=== PATIENT | male | born 1965 | race Caucasian/White ===

== ENCOUNTER 2016-05-21 19:25 | Emergency (ER) | payer BC ==
[2016-05-21 19:26] VITALS: BP 133/80
--- NOTE | 2016-05-21 19:57 | ERNOTE ---
Lower Extremity HPI - Narrative Date of Service: 05/21/16 - General Lower Extremities Pain: knee: left Time Seen by Provider: 05/21/16 19:41 Source: patient, RN notes reviewed Exam Limitations: no limitations - Immun/Allergies/Home Medications Immunizations: IMMUNIZATION HX Immunizations Up to Date Yes History of Influenza Vaccine Yes Hx Pneumococcal Vaccination No Allergies/Adverse Reactions: Allergies Allergy/AdvReac Type Severity Reaction Status Date / Time Penicillins Allergy rash Verified 12/28/13 13:49 Home Medications: HOME MEDICATIONS Aspirin [Aspirin Enteric Coated] 81 mg PO DAILY 12/28/13 [Last Taken Unknown] Diltiazem HCl [Cardizem Cd] 180 mg PO DAILY 12/28/13 [Last Taken Unknown] Fexofenadine HCl [Kira Allergy] 180 mg PO DAILY 12/28/13 [Last Taken Unknown] Fluticasone Propionate [Flonase] 1 spray NS DAILY 12/28/13 [Last Taken Unknown] Gabapentin [Neurontin] 900 mg PO QID 12/28/13 [Last Taken 12/27/13] Losartan Potassium [Cozaar] 100 mg PO DAILY 12/28/13 [Last Taken Unknown] Sildenafil Citrate [Viagra] 50 mg PO PRN 12/28/13 [Last Taken Unknown] Triamterene/Hydrochlorothiazid [Maxzide 37.5MG/25 MG] 1 tab PO DAILY 12/28/13 [ Last Taken Unknown] rOPINIRole HCL [Requip] 0.5 mg PO HS 12/28/13 [Last Taken Unknown] - History of Present Illness Narrative: 50 y/o male to ED for a lesion on his left posterior knee that he is concerned about. He reports that he noticed a linear lesion early today and applied antibiotic ointment to it. This evening he noticed that there was discoloration around the lesion and he was having some occasional burning pain. His was very concerned so he came to have this evaluated. He denies any injury. Occurred: this morning Method of Injury: Reports: no apparent injury Review of Systems - Review of Systems Constitutional: Absent: fever, chills, malaise EYE: Present: no symptoms reported ENT: Present: no symptoms reported Respiratory: Present: no symptoms reported Cardiology: Absent: chest pain, edema, claudication Gastrointestinal/Abdominal: Absent: nausea, vomiting Genitourinary: Present: no symptoms reported Musculoskeletal: Absent: joint pain, joint swelling Skin: Present: lesions, change in color. Absent: rash, lumps Neurological: Absent: weakness, numbness, tingling Endocrine: Present: no symptoms reported Hematologic/Lymphatic: Absent: easy bruising, easy bleeding Psych: Present: no symptoms reported - Patient's Past Medical History Patient History - Medical: No pertinent hx, Chronic Pain Patient History - Cardiac/Respiratory: Hypertension Patient History - Cancer: Melanoma Patient History - Surgical Procedures: Cancer Surgery, EGD - Social History Living Situations: home Smoking Status: Current some day smoker Have you smoked in the past 12 months: No Do you dip or chew tobacco: No Patient requests Smoking Cessation Consult: No Alcohol Use: none Drug Use: none Physical Exam - Physical Exam General Appearance: Present: wd/wn, alert, anxious, obese Respiratory: Present: no respiratory distress, normal breath sounds, no accessory muscle use, lungs clear Cardiovascular/Chest: Present: regular rate, rhythm, no murmur Extremity Exam: Present: normal inspection, non-tender, no edema, normal range of motion Neurological Exam: Present: alert, oriented, normal mood/affect, no motor/ sensory deficits Skin Exam: Present: warm/dry, other - linear abrasion with scab and surrounding ecchymosis to left posterior knee, mildly tendern to palpation ED Progress - Vital Signs Patient's Vital Signs:: I have reviewed the patient's vital signs. Vital Signs: Vital Signs 05/21/16 19:35 Temperature 36.1 C L Pulse Rate 87 Respiratory 16 Rate O2 Sat by Pulse 96 Oximetry - Progress/Reassessment Progress:: Unchanged Departure Clinical Impression: Abrasion - Departure Disposition: Home self-care Condition: Good Instructions: Abrasion, [id number] Additional Instructions: Keep wound clean Apply moisturizer if needed to scabbed area Referrals: Wilman Wesley MD [Primary Care Provider] -
== END 2016-05-21 20:20 | disposition home or self-care (01) ==
LOC: ER 19:25
DX: S80.212A Abrasion, left knee, initial encounter (principal); F17.210 Nicotine dependence, cigarettes, uncomplicated

== ENCOUNTER 2020-07-01 06:33 | Inpatient (IN) ==
--- NOTE | 2020-06-11 08:25 | ANES ---
Anesthesia Pre Procedure Eval HOME MEDICATIONS fluticasone propionate 50 mcg/actuation nasal spray,suspension 2 spray JIM DAILY PRN g 12/09/17 [Last Taken Unknown] Mometasone Furoate 1 appl TOPICAL BID #45 cream..g. 09/22/18 [Last Taken Unknown] albuterol sulfate 90 mcg/actuation aerosol inhaler 2 inh IH Q6H PRN #8.5 g 05/04/19 [Last Taken Unknown] epinephrine 0.3 mg/0.3 mL injection, auto-injector 0.3 mg IM ONCE PRN #2 ea 05/04/19 [Last Taken Unknown] mupirocin 2 % topical ointment 1 applic TOPICAL BID #30 g 06/15/19 [Last Taken Unknown] furosemide 40 mg tablet 40 mg PO DAILY #30 tab 01/03/20 [Last Taken Unknown] ropinirole 5 mg tablet 10 mg PO DAILY #180 tab 01/03/20 [Last Taken Unknown] tamsulosin 0.4 mg capsule 0.4 mg PO DAILY #90 cap 01/03/20 [Last Taken Unknown] hydrochlorothiazide 25 mg tablet 25 mg PO DAILY #30 tab 01/18/20 [Last Taken Unknown] acetaminophen 500 mg tablet 1,000 mg PO TID PRN tab 03/14/20 [Last Taken Unknow n] diltiazem HCl 360 mg capsule,extended release 24 hr 360 mg PO DAILY cap 05/23/20 [Last Taken Unknown] losartan 100 mg tablet 100 mg PO DAILY tab 05/23/20 [Last Taken Unknown] modafinil 200 mg tablet 200 mg PO DAILY tab 05/23/20 [Last Taken Unknown] Allergies/Adverse Reactions: Allergies Allergy/AdvReac Type Severity Reaction Status Date / Time Penicillins Allergy Intermediate rash Verified 05/23/20 07:59 sildenafil [From Viagra] AdvReac Intermediate Heart Verified 05/23/20 07:59 palpatations - Planned Procedure Planned Procedure: LTKA 3/2, RTKA 3/4 Medication List Reviewed:: Yes Allergies Verified: Yes Medical History (Last Reviewed 06/11/20 @ 08:20 by Roldan Anne CRNA) Bilateral primary osteoarthritis of knee (Chronic) Unspecified open wound, right ankle, subsequent encounter (Chronic) Benign prostatic hyperplasia (Chronic) Unspecified open wound, right ankle, initial encounter (Chronic) Restless leg syndrome, uncontrolled (Chronic) Spasm of muscle, back (Chronic) Toe pain (Acute) Right great x 5 years Obesity (BMI 30-39.9) (Chronic) Onychomycosis (Acute) Onset Date: 05/2004 left thumb Low back pain (Chronic) worsening. can't afford for more procedures at pain clinic. Abrasion (Acute) Anaphylactic reaction (Acute) Asthma, intermittent Onset Date: 2011 Carpal tunnel syndrome on both sides Chronic venous insufficiency Onset Date: 11/22/14 Gastroenteritis Onset Date: 12/2013 Hyperlipidemia Onset Date: 07/02/16 Hypertension Labyrinthitis Onset Date: 01/2014 GARY (obstructive sleep apnea) FMCH 03/07/2013 AHI 32/hr,lowest O2 sat 84% Pancreatitis Onset Date: 08/2011 Seasonal allergies Vertigo Onset Date: 01/2014 Surgical History (Last Reviewed 06/11/20 @ 08:20 by Roldan Anne CRNA) History of bilateral carpal tunnel release Onset Date: 2009 Left 01/2010, right 2010, Both done at [facility] History of colonoscopy History of tonsillectomy as a child History of vasectomy Onset Date: 1992 Right ankle injury age 15, surgical repair [place] teeth extracted Family History (Last Reviewed 06/11/20 @ 08:20 by Roldan Anne CRNA) Father Diabetes Cancer Colon Cancer Mother Hyperglycemia Sister Diabetes - Family Anesthesia History Family History:: no untoward family reactions to anesthesia, no familial bleeding tendencies, no family history of clotting disorders - Patient concern regarding past awareness with sedation, no family history of premature - Airway/Neck/Teeth Teeth Condition: intact Neck Exam: full range of motion Mallampatti Score: 3 Thyromental (T-M) distance: > 6 cm Mandibulo Hyoid distance: > 3 cm - Respiratory Respiratory History: sleep apnea, CPAP/BiPAP home use Smoking Status: Current every day smoker - 0.5ppd Discussed smoking cessation including day of surgery: Yes Sleep Apnea currently treated: Yes Sleep Apnea by current assessment: Yes - Cardiovascular Tolerate Activity: Fair Heart Sounds: S1 & S2, Regular, Murmur - Gastrointestinal NPO since: instructed 2400 - Anesthesia Assessment and Plan Narrative: Morbidly obese, Asthma, fatty liver, several episodes of unexpected recall under anesthesia (sedation) This was explained that the procedures were under SEDATION and that could be expected as is the case with the total knee. ASA Class: PS, III Anesthesia Type Plan: Block - adductor canal block for post op pain relief, Spinal
[~2020-07-01 06:33] MED LIST: ISOPROPYL ALCOHOL 480 APPL BTL MC ONE; MORPHINE SULFATE 15 MG TABLET.SA PO PRN; ROPIVACAINE/CLONIDIN/KETOROLAC 50 ML SYRINGE IJ ONE; ROPIVACAINE/CLONIDIN/KETOROLAC 50 ML SYRINGE IJ PRN; TRANEXAMIC ACID 1,000 MG in NORMAL SALINE 100 ML IV PRN; ceFAZolin SODIUM 1 GM VIAL IV PRN; ceFAZolin SODIUM 1 GM VIAL ONE
[2020-07-01] MEDS ORDERED: MIDAZOLAM HCL/PF 5 MG/ML VIAL ONE (06:53)
[2020-07-01] MEDS ORDERED: BUPIVACAINE HCL/EPINEPHRINE 50 ML VIAL IJ ONE (06:53)
[2020-07-01] MEDS ORDERED: PROPOFOL VIAL IV ONE (06:53)
[2020-07-01] MEDS: RINGER'S SOLUTION,LACTATED 1,000 ML IV PRN ×3 (07:05→10:29)
[2020-07-01] MEDS ORDERED: MAG HYDROX/ALUMINUM HYD/SIMETH 30 ML UDC PO PRN (10:22)
[2020-07-01] MEDS ORDERED: ONDANSETRON HCL/PF 2 MG/ML VIAL IV PRN (10:22)
[2020-07-01] MEDS ORDERED: ACETAMINOPHEN 500 MG TABLET PO PRN (10:22)
[2020-07-01] MEDS ORDERED: ZOLPIDEM TARTRATE 5 MG TABLET PO PRN (10:22)
[2020-07-01] MEDS ORDERED: DEXTROSE 5%-LACTATED RINGERS 1,000 ML IV PRN (10:22)
[2020-07-01] MEDS ORDERED: diphenhydrAMINE HCL 50 MG/ML VIAL IV PRN (10:22)
--- NOTE | 2020-07-01 10:22 | OR ---
Operative Report - Dictated Report Narrative: Date: 07/01/2020 Preoperative diagnosis: Left knee degenerative joint disease. Postoperative diagnosis: Left knee degenerative joint disease. Procedure: Left total knee arthroplasty. Surgeon: Artie Talley M.D. Loom Overhauler: Braeden Gaytan PA-C (provided and essential set of skilled, educated hands that assisted with transfer, positioning, prepping, draping, manipulation, retraction, placement of jigs, injection, insertion of implants, irrigation, closure wounds, and dressings all of which could not be performed by the available surgical crew) Anesthesia: Spinal with regional block and local periarticular joint injection. Complications: None Specimens: Bone. Estimated blood loss: Minimal. Tourniquet time: 100 minutes at 350 millimeters of mercury. Retained implants: Depuy Attune size 7 left lugged cemented posterior stabilized femoral component. Size 7 fixed-bearing cemented tibial platform. 7 by 5 millimeter posterior stabilized cross-linked tibial insert. 41 millimeter medialized patella button. Indications: Mr. Jacobsen is a 55-year-old gentleman who has had longstanding left knee pain and arthrosis. This patient was followed in my clinic for period of time with significant complaints of left knee pain consistent with arthritic changes. He had failed conservative measures including, but not limited to, activity modification, passage of time, medications, and other conservative measures. Patient wished to proceed with surgical treatment. The risks, benefits, and alternatives were discussed in clinic. The risks of , blood clots, bleeding, infection, nerve/tendon blood vessel/ injury, malposition of components, intraoperative fracture, postoperative limited range of motion, persistent pain, failure of components, and need for additional procedures. Patient wished to proceed consent was obtained after answering all questions. Procedure: After marking the correct extremity on the floor, the patient was taken to the operating room. A timeout was performed. IV antibiotics consisting of Ancef were administered prior to the procedure. A regional followed by spinal anesthetic was induced by anesthesia, per my request, on the operative table with all bony prominences well-padded. Paredes catheter was placed, and a bump was placed under the operative side buttock. SCDs and SOPHIE hose were utilized on the nonoperative leg. A well-padded tourniquet was applied to the operative thigh. The operative leg was then pre-scrubbed with alcohol, prepped, and draped in a standard sterile fashion. After exsanguinating the extremity with an Esmarch bandage, the tourniquet was inflated. After marking out the anterior knee for standard incision centered over the patella, the skin was incised and dissected down to the joint retinaculum. The joint retinaculum was marked out as well as the horizontal axis of the patella, and a standard medial parapatellar arthrotomy was then made. The most proximal aspect of the quadriceps tendon and the patella tendon insertion were protected from release. A partial synovectomy was performed as well as a resection of the infrapatellar fat pad. The distal femoral fat pad proximal to the trochlea was also resected using cautery. The soft tissues were elevated off the medial aspect of the proximal tibia using a Frye elevator ensuring that we did not transect the medial collateral ligament. Upon initial evaluation range of motion was approximately 0 degrees to 130 degrees of flexion. There were signs of advanced arthrosis in the medial and patellofemoral greater than lateral joint spaces. There were large marginal osteophytes which were removed with a rongeur. The knee was hyperflexed and the patella was tucked laterally. Protecting the surrounding soft tissues with Homans, an entry drill was placed down the femoral canal using Whitesides line for guidance into the entry point. The intramedullary femoral alignment richie was utilized in order to cut the distal femur in 5 degrees of valgus resecting 10 millimeters of bone. Next the distal femur was sized to a size 7. A posterior referencing guide was utilized to place the distal femoral cutting block in 3 degrees of external rotation. This was pinned into place. The rotation was confirmed both visually and based on anatomic landmarks. The 4 in 1 cutting jig of the appropriate size was utilized in order to make all bony cuts. The neena wing was used to ensure no notching. Retractors were utilized in order to protect surrounding soft tissues. This cut did not result in any excessive notching. We then cut the box centered over the distal femur. This allowed for resection of the anterior and posterior cruciate ligaments. I then turned my attention to the preparation of the tibia. Using an extra medullary tibial alignment richie, 4 millimeters of bone was resected off the medial articular surface. This was made perpendicular to the mechanical axis of the joint with the alignment richie centered over the ankle mortise. The alignment richie was checked and was noted to be parallel to the mechanical axis, centered over the medial one third of the tibial tubercle, paralleling the anterior surface of the tibia. We then turned our attention to the remaining meniscus and soft tissues. These were removed while protecting the surrounding ligaments and soft tissues. The marginal osteophytes off the anterior, posterior, medial, lateral aspects of the femur and tibia were removed. The tibia was sized out to a size 7. Next the tibia was drilled and punched in an externally rotated position. Next the trial femur and a series of tibial inserts were utilized in order to allow for full extension and maximal flexion. It was found that a 5 millimeter insert gave the best range of motion and stability at multiple flexion points as well as at full extension there was less than 2 mm of gapping both medially and laterally. There is minimal anterior translation with the knee at 90 degrees of flexion and no signs of being able to dislocate the knee. The patella was then prepared. The initial thickness was 24 millimeters. This was reamed down to 14 millimeters parallel to the anterior surface of the patella. It was sized out to a size 41 medialized patella button. This was then drilled and trialed. Without any medial restraint the patella tracked appropriately and did not sublux or dislocate. At this point, it was felt these were the appropriate sized implants, and all trials were removed. The standard periarticular joint injection consisting of ropivacaine, Toradol, and epinephrine were injected into the periarticular joint tissues. The bony surfaces were thoroughly irrigated with a pulsatile-suction saline irrigation device. A bone plug from the prior resected anterior chamfer cut was placed into the drill hole at the distal femur. The bony surfaces were then dried in preparation for placement of the implants. The cement was vacuum mixed per the director [employer]'s instructions. The cement was placed on the dry bony surfaces and posterior aspect of the implants. The implants were impacted into place, removing all extruded cement. At this point anesthesia administered tranexamic acid per protocol intravenously. The knee was placed in extension with axial loading with the trial insert while the cement cured. Once the cement cured, all remaining extruded cement was removed. The knee was placed through a range of motion with the trial insert to ensure appropriate range of motion and stability. Final range of motion was approximately 0 to 130 degrees. The knee was again thoroughly irrigated with pulsatile saline lavage. The final polyethylene insert was then impacted into place ensuring no retained soft tissues. The remaining periarticular joint injection was injected. A medium Hemovac drain was placed exiting superior laterally. The knee was then placed over a triangle and the arthrotomy was closed with interrupted #1 Vicryl after thoroughly irrigating the joint. The deep and subcutaneous tissues were closed with interrupted 0 and 3-0 Vicryl respectively. Skin was closed with a running subcutaneous 3-0 Monocryl and Prineo Dermabond dressing. 4 x 4's, Sof-Rol, and a full leg Sridhar wrap were applied. All sponge, needle, blade, and instrument counts were correct prior to closing the wounds. Postoperative condition: The patient was awoken and transferred to the postanesthesia care unit in stable condition. Plan is to be admitted to the inpatient medical/surgical floor postoperatively for 24 hours of IV antibiotics, physical therapy, occupational therapy, and medical comanagement. Patient will be weightbearing as tolerated with range of motion as tolerated. DVT prophylaxis will be with SCDs, SOPHIE hose, and pharmacological anticoagulation. Anticipated hospital stay is approximately 1-3 days.
[2020-07-01] MEDS ORDERED: ALBUTEROL SULFATE 2.5 MG/0.5 ML VIAL.NEB IH PRN (10:24)
[2020-07-01] MEDS ORDERED: EPINEPHrine 0.3 MG DISP.SYRIN IM PRN (10:24)
--- NOTE | 2020-07-01 10:46 | ANES ---
Anesthesia Procedure Note Procedure Note: ANESTHESIA PROCEDURE NOTE Date of Procedure: 07/01/2020 Time of procedure: 8:05 AM. Performed by: ISIS Allen CRNA, MSN Sports Book Server: Radha Head RN. Preprocedure diagnosis: Post total knee arthroplasty pain. Post procedure diagnosis: Same. Procedure: Left adductor Canal Block. Indications: Post left total knee arthroplasty pain relief. Findings: See below. Details of the procedure: The patient was brought to OR #4 and placed in supine position. The patient's left femoral area to the knee was prepped with chlorhexidine and using ultrasound guidance the left femoral artery and nerve was identified and then followed to the level of the adductor canal. Lidocaine 1% was infiltrated to the skin of the intended injection site. Under ultrasound guidance the saphenous nerve was approached with visualization of a 4 inch shielded block needle. Once saphenous nerve was identified with proximity to the needle tip, the saphenous nerve was surrounded with 30 mL bupivacaine 0.25% with 1-200,000 epinephrine. Please see radiology/ultrasound report for details and retained images of the procedure. EBL: 0 Fluids: N/A. Specimen: N/A. Post procedure condition: The patient tolerated the procedure well. No complications were noted. Thank you for this consultation. Roldan Anne CRNA, ARNP, MSN
--- NOTE | 2020-07-01 10:46 | ANES ---
Post Anesthesia Discharge - Transfer of Care Transfer of Care handoff given to nurse: Yes - Discharge from PACU Discharge from PACU when meets criteria: Yes - Alert and comfortable
--- NOTE | 2020-07-01 11:08 | ANES ---
Post Anesthesia Assessment - Vital Signs Vitals: Last Vital Signs Temp 36.5 C 07/01/20 10:40 Pulse 68 07/01/20 10:55 Resp 20 07/01/20 10:55 BP 106/49 07/01/20 10:55 Pulse Ox 97 07/01/20 10:55 Airway Patency: Normal - Mental Status Level Of Consciousness: Awake, Alert, Appropriate - Pain Level Pain Score: 0 - N/V Assessment Nausea/Vomiting Presence: None Dehydration:: No
[2020-07-01] MEDS: KETOROLAC TROMETHAMINE 15 MG/ML VIAL IV SCH ×3 (11:40→23:47)
[2020-07-01] MEDS: ceFAZolin SODIUM 1 GM in DEXTROSE 5 % IN WATER 100 ML IV SCH ×6 (11:41→23:53)
[2020-07-01] MEDS: HYDROcodone/ACETAMINOPHEN 1 EACH TABLET PO PRN ×3 (11:47→21:04)
[2020-07-01] MEDS ORDERED: SULINDAC 200 MG PO SCH (21:00)
[2020-07-01] MEDS: SENNOSIDES/DOCUSATE SODIUM 1 TAB TABLET PO SCH (21:06)
[2020-07-01] MEDS: rOPINIRole HCL 1 MG TABLET PO SCH (21:06)
[2020-07-02] MEDS: KETOROLAC TROMETHAMINE 15 MG/ML VIAL IV SCH ×4 (05:51→23:29)
[2020-07-02] MEDS: HYDROcodone/ACETAMINOPHEN 1 EACH TABLET PO PRN ×2 (05:59→10:42)
[2020-07-02 06:19] LABS: Hematocrit 41.3 % (42.0-52.0); Hemoglobin 14.2 gm/dL (13.5-18.0); Mean Cell Volume 92.8 fl (78-100); Mean Corpuscular Hemoglobin 31.9 pg (27-31); Mean Corpuscular Hgb Conc 34.4 g/dl (32-36); Mean Platelet Volume 9.8 fl (8-11.3); Platelet Count 151 K/mm3 (150-450); Red Blood Count 4.45 M/mm3 (4.7-6.0); Red Cell Distribution Width 13.6 % (11.5-14.0); White Blood Count 9.2 K/mm3 (4.0-10.5)
[2020-07-02 06:24] LABS: Anion Gap 11.8 mmol/L (6.8-13.8); Calcium * 8.4 mg/dL (7.9-10.9); Carbon Dioxide 30.6 mmol/L (24-32.6); Estimated Creat Clear 68.2; Potassium 3.4 mmol/L (3.4-4.6)
[2020-07-02] MEDS: LOSARTAN POTASSIUM 50 MG TABLET PO SCH (08:14)
[2020-07-02] MEDS: rOPINIRole HCL 1 MG TABLET PO SCH ×2 (08:15→20:16)
[2020-07-02] MEDS: DILTIAZEM HCL 180 MG CAP.SR.24H PO SCH (08:16)
[2020-07-02] MEDS: FUROSEMIDE 40 MG TABLET PO SCH (08:16)
[2020-07-02] MEDS: TAMSULOSIN HCL 0.4 MG CAP.SR.24H PO SCH (08:16)
[2020-07-02] MEDS: HYDROCHLOROTHIAZIDE 25 MG TABLET PO SCH (08:17)
[2020-07-02] MEDS: ENOXAPARIN SODIUM 40 MG/0.4 ML SYRG SC SCH (08:42)
[2020-07-02] MEDS: MORPHINE SULFATE 2 MG/ML DISP.SYRIN IV PRN ×2 (13:00→20:17)
[2020-07-02] MEDS: HYDROcodone/ACETAMINOPHEN 5 ML UDC PO PRN ×3 (14:48→23:40)
[2020-07-02] MEDS: MODAFINIL 200 MG PO SCH (15:03)
[2020-07-02] MEDS: GABAPENTIN 300 MG CAPSULE PO SCH ×2 (15:12→20:17)
--- NOTE | 2020-07-02 17:14 | PN ---
Subjective - Date and Time Seen Date: 07/02/20 Time: 12:25 Subjective Narrative: Subjective: Reports swelling and pain that is not as well-controlled as he would like. Was able to walk in the room with therapy. Pain is not well-controlled. Voiding without any complications. Tolerating by mouth intake. Denies any nausea or vomiting. Denies calf pain. Slept well. Physical exam: Alert and oriented to person, place and time Left lower extremity: Palpable dorsalis pedis pulse. Sensation grossly intact to light touch. Dressings removed due to some bloody drainage but no sign of active bleeding. Able to flex and extend ankle and toes. No excessive drainage. Calf and thigh are soft and nontender. Although his thigh has some swelling it is not excessively tense Assessment: Postop day 1 status post left total knee arthroplasty. Plan: Due to the need for pain control, post-operative limited mobility, protection of the surgical site and joint, monitoring of the wound, and the management of chronic medical conditions, he requires continued inpatient care. Continue with physical and occupational therapy weightbearing as tolerated. Continue with anticoagulation. 24 hours postoperative prophylactic antibiotics. Pain control with goal to rely on oral medications -he again states that morphine, Dilaudid, oxycodone products do not work for him and we did increase his hydrocodone dosing although we do not carry the 10/325 mg tabs. I encouraged him to utilize the IV breakthrough medications as he states that these did not work as they were related to his pancreatitis. Continue bowel regimen. Will need 6 weeks with walker or assistive device to protect joint while ambulating during the recovery process. Discharge planning. Discontinue drain and continue Paredes catheter due to surgical intervention tomorrow. Objective - Vitals Vitals: Last Vital Signs Temp 36.8 C 07/02/20 14:34 Pulse 75 07/02/20 14:34 Resp 20 07/02/20 14:34 BP 104/61 07/02/20 14:34 Pulse Ox 92 L 07/02/20 14:34 - Abnormal Lab Findings Abnormal Lab Findings: Abnormal Lab Results 07/02/20 07/02/20 Range/Units 06:14 06:14 RBC 4.45 L (4.7-6.0) M/mm3 Hct 41.3 L (42.0-52.0) % MCH 31.9 H (27-31) pg Est GFR (Non-Af Amer) 59 L (60-130) mL/min Random Glucose 114 H (70-110) mg/dL Cauti Physician Documentation - Urinary Catheter Management Urethral (Paredes) Urethral Indwelling: Yes Reason for Continuing Indwelling Catheter: Surgical Procedure Date of Insertion: 07/01/20 Time of Insertion: 08:35 Assessment/Plan - Problems/Diagnosis (1) Status post left knee replacement Problem: Acute (2) Anxiety about health Problem: Chronic (3) Benign essential hypertension Problem: Chronic (4) Benign prostatic hyperplasia Problem: Chronic Qualifiers: (5) Hyperlipidemia Problem: Chronic Qualifiers: (6) Narcolepsy Problem: Chronic (7) GARY on CPAP Problem: Chronic (8) RLS (restless legs syndrome) Problem: Chronic
[2020-07-02] MEDS: SENNOSIDES/DOCUSATE SODIUM 1 TAB TABLET PO SCH (20:17)
[2020-07-03] MEDS: GABAPENTIN 300 MG CAPSULE PO SCH ×3 (05:38→20:29)
[2020-07-03] MEDS: KETOROLAC TROMETHAMINE 15 MG/ML VIAL IV SCH ×4 (05:55→23:11)
[2020-07-03] MEDS ORDERED: MORPHINE SULFATE 15 MG TABLET.SA PO PRN (06:00)
[2020-07-03] MEDS ORDERED: TRANEXAMIC ACID 1,000 MG in NORMAL SALINE 100 ML IV PRN (06:00)
[2020-07-03] MEDS ORDERED: ceFAZolin SODIUM 1 GM VIAL IV PRN (06:00)
[2020-07-03] MEDS ORDERED: ROPIVACAINE/CLONIDIN/KETOROLAC 50 ML SYRINGE IJ PRN (06:00)
[2020-07-03] MEDS: RINGER'S SOLUTION,LACTATED 1,000 ML IV PRN ×3 (06:00→09:38)
[2020-07-03] MEDS ORDERED: LIDOCAINE HCL 20 ML VIAL ONE (06:48)
[2020-07-03] MEDS ORDERED: BUPIVACAINE HCL/EPINEPHRINE 50 ML VIAL IJ ONE (06:48)
[2020-07-03] MEDS ORDERED: NORMAL SALINE 20 ML VIAL ONE (06:49)
[2020-07-03] MEDS ORDERED: MIDAZOLAM HCL/PF 5 MG/ML VIAL ONE (06:49)
[2020-07-03] MEDS ORDERED: PROPOFOL VIAL IV ONE (06:49)
[2020-07-03] MEDS ORDERED: BUPIVACAINE HCL/PF 10 ML VIAL ONE (06:49)
[2020-07-03] MEDS ORDERED: ceFAZolin SODIUM 1 GM VIAL ONE (07:01)
[2020-07-03] MEDS ORDERED: ROPIVACAINE/CLONIDIN/KETOROLAC 50 ML SYRINGE IJ ONE (07:01)
[2020-07-03] MEDS ORDERED: ISOPROPYL ALCOHOL 480 APPL BTL MC ONE (07:08)
--- NOTE | 2020-07-03 07:21 | ANES ---
Anesthesia Pre Procedure Eval Vitals/Labs: Last Vital Signs Temp 36.6 C 07/03/20 06:00 Pulse 65 07/03/20 06:00 Resp 16 07/03/20 06:00 BP 145/85 H 07/03/20 06:00 Pulse Ox 95 07/03/20 06:00 HOME MEDICATIONS albuterol sulfate 90 mcg/actuation aerosol inhaler 2 inh IH Q6H PRN #8.5 g 05/04/19 [Last Taken Unknown] epinephrine 0.3 mg/0.3 mL injection, auto-injector 0.3 mg IM ONCE PRN #2 ea 05/04/19 [Last Taken Unknown] furosemide 40 mg tablet 40 mg PO DAILY #30 tab 01/03/20 [Last Taken Unknown] tamsulosin 0.4 mg capsule 0.4 mg PO DAILY #90 cap 01/03/20 [Last Taken Unknown] hydrochlorothiazide 25 mg tablet 25 mg PO DAILY #30 tab 01/18/20 [Last Taken Unknown] acetaminophen 500 mg tablet 1,000 mg PO TID PRN tab 03/14/20 [Last Taken Unknown] diltiazem HCl 360 mg capsule,extended release 24 hr 360 mg PO DAILY cap 05/23/20 [Last Taken Unknown] losartan 100 mg tablet 100 mg PO DAILY tab 05/23/20 [Last Taken Unknown] modafinil 200 mg tablet 200 mg PO DAILY tab 05/23/20 [Last Taken Unknown] Ropinirole HCl 5 mg PO BID 06/11/20 [Last Taken Unknown] Sulindac 200 mg PO BID 06/11/20 [Last Taken Unknown] Allergies/Adverse Reactions: Allergies Allergy/AdvReac Type Severity Reaction Status Date / Time Penicillins Allergy Intermediate rash Verified 07/01/20 07:03 sildenafil [From Viagra] AdvReac Intermediate Heart Verified 07/01/20 07:03 palpatations - Planned Procedure Planned Procedure: LTKA 3/2, RTKA 3/4 Medication List Reviewed:: Yes Allergies Verified: Yes Medical History (Last Reviewed 07/01/20 @ 07:00 by Shweta Marrero RN) Bilateral primary osteoarthritis of knee (Chronic) Unspecified open wound, right ankle, subsequent encounter (Chronic) Benign prostatic hyperplasia (Chronic) Unspecified open wound, right ankle, initial encounter (Chronic) Restless leg syndrome, uncontrolled (Chronic) Spasm of muscle, back (Chronic) Toe pain (Acute) Right great x 5 years Obesity (BMI 30-39.9) (Chronic) Onychomycosis (Acute) Onset Date: 05/2004 left thumb Low back pain (Chronic) worsening. can't afford for more procedures at pain clinic. Abrasion (Acute) Anaphylactic reaction (Acute) "random anaphylactic reactions, unsure from what" Asthma, intermittent Onset Date: 2011 Carpal tunnel syndrome on both sides Chronic venous insufficiency Onset Date: 11/22/14 Gastroenteritis Onset Date: 12/2013 Hyperlipidemia Onset Date: 07/02/16 Hypertension Labyrinthitis Onset Date: 01/2014 GARY (obstructive sleep apnea) FMCH 03/07/2013 AHI 32/hr,lowest O2 sat 84% Pancreatitis Onset Date: 08/2011 Seasonal allergies Vertigo Onset Date: 01/2014 Surgical History (Last Reviewed 07/01/20 @ 07:01 by Shweta Marrero RN) History of bilateral carpal tunnel release Onset Date: 2009 Left 01/2010, right 2010, Both done at [facility] History of colonoscopy History of tonsillectomy as a child History of vasectomy Onset Date: 1992 Right ankle injury age 15, surgical repair [place] teeth extracted Family History (Last Reviewed 07/01/20 @ 07:01 by Shweta Marrero RN) Father Diabetes Cancer Colon Cancer Mother Diabetes Sister Breast cancer - Family Anesthesia History Family History:: no untoward family reactions to anesthesia - Airway/Neck/Teeth Within Normal Limits:: Yes Teeth Condition: intact Neck Exam: limited range of motion Mallampatti Score: 3 Thyromental (T-M) distance: > 6 cm Mandibulo Hyoid distance: > 3 cm - Respiratory Respiratory History: CPAP/BiPAP home use Respiratory Physical: lungs clear Smoking Status: Current every day smoker Discussed smoking cessation including day of surgery: Yes Sleep Apnea currently treated: Yes Sleep Apnea by current assessment: Yes - Cardiovascular Cardiac History: hypertension, hyperlipidemia Tolerate Activity: Fair Heart Sounds: S1 & S2, Regular - Gastrointestinal NPO since: MN - Anesthesia Assessment and Plan ASA Class: PS, III Anesthesia Type Plan: Spinal - adductor canal block Planned difficult intubation/equipment available: No
[2020-07-03] MEDS ORDERED: DEXTROSE 5%-LACTATED RINGERS 1,000 ML IV PRN (10:15)
--- NOTE | 2020-07-03 10:15 | OR ---
Operative Report - Dictated Report Narrative: Date: 07/03/2020 Preoperative diagnosis: Right knee degenerative joint disease. Postoperative diagnosis: Right knee degenerative joint disease. Procedure: Right total knee arthroplasty. Surgeon: Artie Talley M.D. Unloader Operator: Braeden Gaytan PA-C (provided and essential set of skilled, educated hands that assisted with transfer, positioning, prepping, draping, manipulation, retraction, placement of jigs, injection, insertion of implants, irrigation, closure wounds, and dressings all of which could not be performed by the available surgical crew) Anesthesia: Spinal with regional block and local periarticular joint injection. Complications: None Specimens: Bone. Estimated blood loss: Minimal. Tourniquet time: 115 minutes at 325 millimeters of mercury. Retained implants: Depuy Attune size 7 right lugged cemented posterior stabilized femoral component. Size 7 fixed-bearing cemented tibial platform. 7 by 5 millimeter posterior stabilized cross-linked tibial insert. 41 millimeter medialized patella button. Indications: Mr. Jacobsen is a 55-year-old gentleman who has had longstanding right knee pain and arthrosis. This patient was followed in my clinic for period of time with significant complaints of right knee pain consistent with arthritic changes. He had failed conservative measures including, but not limited to, activity modification, passage of time, medications, and other conservative measures. Patient wished to proceed with surgical treatment. The risks, benefits, and alternatives were discussed in clinic. The risks of , blood clots, bleeding, infection, nerve/tendon blood vessel/ injury, malposition of components, intraoperative fracture, postoperative limited range of motion, persistent pain, failure of components, and need for additional procedures. Patient wished to proceed consent was obtained after answering all questions. Procedure: After marking the correct extremity on the floor, the patient was taken to the operating room. A timeout was performed. IV antibiotics consisting of Ancef were administered prior to the procedure. A regional followed by spinal anesthetic was induced by anesthesia, per my request, on the operative table with all bony prominences well-padded. Paredes catheter was already in place, and a bump was placed under the operative side buttock. SCDs and SOPHIE hose were utilized on the nonoperative leg. A well-padded tourniquet was applied to the operative thigh. The operative leg was then pre-scrubbed with alcohol, prepped, and draped in a standard sterile fashion. After exsanguinating the extremity with an Esmarch bandage, the tourniquet was inflated. After marking out the anterior knee for standard incision centered over the patella, the skin was incised and dissected down to the joint retinaculum. The joint retinaculum was marked out as well as the horizontal axis of the patella, and a standard medial parapatellar arthrotomy was then made. The most proximal aspect of the quadriceps tendon and the patella tendon insertion were protected from release. A partial synovectomy was performed as well as a resection of the infrapatellar fat pad. The distal femoral fat pad proximal to the trochlea was also resected using cautery. The soft tissues were elevated off the medial aspect of the proximal tibia using a Frye elevator ensuring that we did not transect the medial collateral ligament. Upon initial evaluation range of motion was approximately 0 degrees to 120 degrees of flexion. There were signs of advanced arthrosis in the medial and patellofemoral greater than lateral joint spaces. There were large marginal osteophytes which were removed with a rongeur. The knee was hyperflexed and the patella was tucked laterally. Protecting the surrounding soft tissues with Homans, an entry drill was placed down the femoral canal using Whitesides line for guidance into the entry point. The intramedullary femoral alignment richie was utilized in order to cut the distal femur in 5 degrees of valgus resecting 10 millimeters of bone. Next the distal femur was sized to a size 7. A posterior referencing guide was utilized to place the distal femoral cutting block in 3 degrees of external rotation. This was pinned into place. The rotation was confirmed both visually and based on anatomic landmarks. The 4 in 1 cutting jig of the appropriate size was utilized in order to make all bony cuts. The neena wing was used to ensure no notching. Retractors were utilized in order to protect surrounding soft tissues. This cut did not result in any excessive notching. We then cut the box centered over the distal femur. This allowed for resection of the anterior and posterior cruciate ligaments. I then turned my attention to the preparation of the tibia. Using an extra medullary tibial alignment richie, 4 millimeters of bone was resected off the medial articular surface. This was made perpendicular to the mechanical axis of the joint with the alignment richie centered over the ankle mortise. The alignment richie was checked and was noted to be parallel to the mechanical axis, centered over the medial one third of the tibial tubercle, paralleling the anterior surface of the tibia. We then turned our attention to the remaining meniscus and soft tissues. These were removed while protecting the surrounding ligaments and soft tissues. The marginal osteophytes off the anterior, posterior, medial, lateral aspects of the femur and tibia were removed. The tibia was sized out to a size 7. Next the tibia was drilled and punched in an externally rotated position. Next the trial femur and a series of tibial inserts were utilized in order to allow for full extension and maximal flexion. It was found that a 5 millimeter insert gave the best range of motion and stability at multiple flexion points as well as at full extension there was less than 2 mm of gapping both medially and laterally. There is minimal anterior translation with the knee at 90 degrees of flexion and no signs of being able to dislocate the knee. The patella was then prepared. The initial thickness was 24 millimeters. This was reamed down to 14 millimeters parallel to the anterior surface of the patella. It was sized out to a size 41 medialized patella button. This was then drilled and trialed. Without any medial restraint the patella tracked appropriately and did not sublux or dislocate. At this point, it was felt these were the appropriate sized implants, and all trials were removed. The standard periarticular joint injection consisting of ropivacaine, Toradol, and epinephrine were injected into the periarticular joint tissues. The bony surfaces were thoroughly irrigated with a pulsatile-suction saline irrigation device. A bone plug from the prior resected anterior chamfer cut was placed into the drill hole at the distal femur. The bony surfaces were then dried in preparation for placement of the implants. The cement was vacuum mixed per the director of programming's instructions. The cement was placed on the dry bony surfaces and posterior aspect of the implants. The implants were impacted into place, removing all extruded cement. At this point anesthesia administered tranexamic acid per protocol intravenously. The knee was placed in extension with axial loading with the trial insert while the cement cured. Once the cement cured, all remaining extruded cement was removed. The knee was placed through a range of motion with the trial insert to ensure appropriate range of motion and stability. Final range of motion was approximately 0 to 120 degrees. The knee was again thoroughly irrigated with pulsatile saline lavage. The final polyethylene insert was then impacted into place ensuring no retained soft tissues. The remaining periarticular joint injection was injected. A medium Hemovac drain was placed exiting superior laterally. The knee was then placed over a triangle and the arthrotomy was closed with interrupted #1 Vicryl after thoroughly irrigating the joint. The deep and subcutaneous tissues were closed with interrupted 0 and 3-0 Vicryl respectively. Skin was closed with a running subcutaneous 3-0 Monocryl and Prineo Dermabond dressing. 4 x 4's, Sof-Rol, and a full leg Sridhar wrap were applied. All sponge, needle, blade, and instrument counts were correct prior to closing the wounds. Postoperative condition: The patient was awoken and transferred to the postanesthesia care unit in stable condition. Plan is to be admitted to the inpatient medical/surgical floor postoperatively for 24 hours of IV antibiotics, physical therapy, occupational therapy, and medical comanagement. Patient will be weightbearing as tolerated with range of motion as tolerated. DVT prophylaxis will be with SCDs, SOPHIE hose, and pharmacological anticoagulation. Anticipated hospital stay is approximately 1-3 days.
--- NOTE | 2020-07-03 10:39 | ANES ---
Post Anesthesia Discharge - Transfer of Care Transfer of Care handoff given to nurse: Yes - Discharge from PACU Discharge from PACU when meets criteria: Yes
--- NOTE | 2020-07-03 10:42 | ANES ---
Anesthesia Procedure Note Procedure Note: ANESTHESIA PROCEDURE NOTE Date of procedure: 07/03/2020. Time of procedure: 804. Performed by: Zak Jade CRNA Key Entry Operator: Radha Head RN . Preprocedure diagnosis: Right knee DJD. Post procedure diagnosis: Same. Procedure: Ultrasound-guided right adductor canal Indications: Postoperative analgesia for right total knee arthroplasty. Findings: Patient is brought to operating room #4, sedated, and given a spinal anesthetic. The patient is then placed in a supine position. Patient's right inner thigh was prepped with ChloraPrep. Ultrasound utilized to identify the saphenous nerve in the right adductor canal. A 20-gauge 4 inch regional block needle was advanced under ultrasound guidance until tip of needle was positioned just proximally to saphenous nerve. A total of 30 mL of 0.25% Marcaine with epinephrine 1-200,000 was injected with adequate spread of local anesthesia note d a around the nerve. Regional block needle was removed intact. EBL: Minimal. Fluids: N/A. Specimen: N/A. Post procedure condition: The patient tolerated the procedure well. No complications were noted. Thank you for this consultation Zak Jade CRNA
--- NOTE | 2020-07-03 11:13 | ANES ---
Post Anesthesia Assessment - Vital Signs Vitals: Last Vital Signs Temp 36.5 C 07/03/20 10:45 Pulse 80 07/03/20 10:45 Resp 12 07/03/20 10:45 BP 129/63 07/03/20 10:45 Pulse Ox 96 07/03/20 10:45 Airway Patency: Normal - Mental Status Level Of Consciousness: Awake - Pain Level Pain Score: 0 - N/V Assessment Nausea/Vomiting Presence: None Dehydration:: No
[2020-07-03] MEDS: rOPINIRole HCL 1 MG TABLET PO SCH ×2 (12:03→20:30)
[2020-07-03] MEDS: HYDROCHLOROTHIAZIDE 25 MG TABLET PO SCH (12:03)
[2020-07-03] MEDS: MODAFINIL 200 MG PO SCH (12:04)
[2020-07-03] MEDS: FUROSEMIDE 40 MG TABLET PO SCH (12:04)
[2020-07-03] MEDS: DILTIAZEM HCL 180 MG CAP.SR.24H PO SCH (12:04)
[2020-07-03] MEDS: LOSARTAN POTASSIUM 50 MG TABLET PO SCH (12:04)
[2020-07-03] MEDS: TAMSULOSIN HCL 0.4 MG CAP.SR.24H PO SCH (12:04)
[2020-07-03] MEDS: HYDROcodone/ACETAMINOPHEN 5 ML UDC PO PRN ×3 (12:10→18:31)
[2020-07-03] MEDS: ceFAZolin SODIUM 1 GM in DEXTROSE 5 % IN WATER 100 ML IV SCH ×4 (12:17→18:32)
[2020-07-03] MEDS: MORPHINE SULFATE 15 MG TABLET.SA PO SCH (20:28)
[2020-07-03] MEDS: SENNOSIDES/DOCUSATE SODIUM 1 TAB TABLET PO SCH (20:29)
[2020-07-04] MEDS: ceFAZolin SODIUM 1 GM in DEXTROSE 5 % IN WATER 100 ML IV SCH ×2 (00:40)
[2020-07-04] MEDS: HYDROcodone/ACETAMINOPHEN 5 ML UDC PO PRN ×6 (00:42→23:22)
[2020-07-04] MEDS: KETOROLAC TROMETHAMINE 15 MG/ML VIAL IV SCH ×4 (05:11→22:38)
[2020-07-04] MEDS: GABAPENTIN 300 MG CAPSULE PO SCH ×3 (05:11→21:15)
[2020-07-04 06:08] LABS: Hematocrit 38.4 % (42.0-52.0); Hemoglobin 12.6 gm/dL (13.5-18.0); Mean Cell Volume 96.7 fl (78-100); Mean Corpuscular Hemoglobin 31.7 pg (27-31); Mean Corpuscular Hgb Conc 32.8 g/dl (32-36); Mean Platelet Volume 9.9 fl (8-11.3); Platelet Count 163 K/mm3 (150-450); Red Blood Count 3.97 M/mm3 (4.7-6.0); Red Cell Distribution Width 13.5 % (11.5-14.0); White Blood Count 10.9 K/mm3 (4.0-10.5)
[2020-07-04 06:18] LABS: Anion Gap 7.4 mmol/L (6.8-13.8); BUN/Creatinine Ratio 10.9 (9.0-21.6); Calcium * 8.7 mg/dL (7.9-10.9); Carbon Dioxide 35.9 mmol/L (24-32.6); Estimated Creat Clear 54.9; Potassium 3.3 mmol/L (3.4-4.6)
[2020-07-04] MEDS: MORPHINE SULFATE 15 MG TABLET.SA PO SCH ×2 (09:04→21:15)
[2020-07-04] MEDS: LOSARTAN POTASSIUM 50 MG TABLET PO SCH (09:05)
[2020-07-04] MEDS: HYDROCHLOROTHIAZIDE 25 MG TABLET PO SCH (09:05)
[2020-07-04] MEDS: rOPINIRole HCL 1 MG TABLET PO SCH ×2 (09:05→21:16)
[2020-07-04] MEDS: DILTIAZEM HCL 180 MG CAP.SR.24H PO SCH (09:05)
[2020-07-04] MEDS: TAMSULOSIN HCL 0.4 MG CAP.SR.24H PO SCH (09:06)
[2020-07-04] MEDS: MODAFINIL 200 MG PO SCH (09:06)
[2020-07-04] MEDS: FUROSEMIDE 40 MG TABLET PO SCH (09:06)
[2020-07-04] MEDS: ENOXAPARIN SODIUM 40 MG/0.4 ML SYRG SC SCH (09:29)
--- NOTE | 2020-07-04 13:58 | PN ---
Subjective - Date and Time Seen Date: 07/04/20 Time: 13:52 Subjective Narrative: 55-year-old male postop day 1 status post right total knee arthroplasty, postop day 3 status post left total knee arthroplasty. Patient overall is doing well he has been up and ambulated with physical therapy for approximately 20 feet. He still has significant pain. Tolerating p.o. diet. Using p.o. pain medication. Has had mild drainage noted through his dressings at this time. He notes his pain is worse with weightbearing better with rest. Denies any other acute concerns currently. Objective - Vitals Vitals: Last Vital Signs Temp 38.0 C 07/04/20 11:23 Pulse 77 07/04/20 11:23 Resp 14 07/04/20 11:23 BP 173/76 H 07/04/20 11:23 Pulse Ox 92 L 07/04/20 11:23 - Abnormal Lab Findings Abnormal Lab Findings: Abnormal Lab Results 07/04/20 07/04/20 Range/Units 06:05 06:05 WBC 10.9 H (4.0-10.5) K/mm3 RBC 3.97 L (4.7-6.0) M/mm3 Hgb 12.6 L (13.5-18.0) gm/dL Hct 38.4 L (42.0-52.0) % MCH 31.7 H (27-31) pg Potassium 3.3 L (3.4-4.6) mmol/L Carbon Dioxide 35.9 H (24-32.6) mmol/L Creatinine 1.65 H (0.4-1.4) mg/dL Est GFR (Non-Af Amer) 46 L D (60-130) mL/min Random Glucose 128 H (70-110) mg/dL - Exam Constitutional: Present: Alert, Oriented x3, Cooperative Respiratory: Present: no respiratory distress Extremity: Present: other - Bilateral lower extremities--> bandages have mild drainage blood-tinged greater on the right than left, sensation intact light touch, diffuse mild tenderness about bilateral knees, distal capillary fill brisk Skin Exam: Present: normal color, warm/dry Appearance: Present: appropriate appearance Eye contact: Present: cooperative Thoughts: Present: normal thought pattern Cauti Physician Documentation - Urinary Catheter Management Urethral (Paredes) Urethral Indwelling: Yes Date of Insertion: 07/01/20 Time of Insertion: 08:35 Date of Removal: 07/04/20 Time of Removal: 05:29 Assessment/Plan Plan Narrative: -55-year-old male status post bilateral knee replacements on 07/03 and 07/01. Patient overall is doing well continues to struggle postoperatively with mild pain control as well as meeting his physical therapy goals. He has had mild drainage on his dressings discussed continued monitoring for significant bleeding. Patient will continue to progress with physical therapy. At this time once he meets all PT goals including stairs he can be discharged home with self-care. Was tolerating the pain with p.o. pain medication. He also is returned to p.o. diet without significant complications. Discussed with patient recovery process and continued monitoring. We will continue to adjust treatment plan accordingly. We will continue with plan ambulation every 2-3 hours working towards physical therapy goals. Patient will continue to be monitored in the hospital for other acute complications. - Problems/Diagnosis (1) Status post right knee replacement Problem: Acute (2) Status post left knee replacement Problem: Acute
[2020-07-04] MEDS: MAGNESIUM HYDROXIDE 30 ML UDC PO PRN (15:41)
[2020-07-04] MEDS: SENNOSIDES/DOCUSATE SODIUM 1 TAB TABLET PO SCH (21:15)
[2020-07-05] MEDS: KETOROLAC TROMETHAMINE 15 MG/ML VIAL IV SCH (04:19)
[2020-07-05] MEDS: GABAPENTIN 300 MG CAPSULE PO SCH (05:28)
[2020-07-05] MEDS: HYDROcodone/ACETAMINOPHEN 5 ML UDC PO PRN ×2 (05:55→10:51)
[2020-07-05] MEDS: HYDROCHLOROTHIAZIDE 25 MG TABLET PO SCH (08:04)
[2020-07-05] MEDS: MAGNESIUM HYDROXIDE 30 ML UDC PO PRN (08:04)
[2020-07-05] MEDS: MORPHINE SULFATE 15 MG TABLET.SA PO SCH (08:04)
[2020-07-05] MEDS: DILTIAZEM HCL 180 MG CAP.SR.24H PO SCH (08:05)
[2020-07-05] MEDS: TAMSULOSIN HCL 0.4 MG CAP.SR.24H PO SCH (08:05)
[2020-07-05] MEDS: LOSARTAN POTASSIUM 50 MG TABLET PO SCH (08:05)
[2020-07-05] MEDS: rOPINIRole HCL 1 MG TABLET PO SCH (08:05)
[2020-07-05] MEDS: FUROSEMIDE 40 MG TABLET PO SCH (08:06)
[2020-07-05] MEDS: MODAFINIL 200 MG PO SCH (08:06)
[2020-07-05] MEDS: ENOXAPARIN SODIUM 40 MG/0.4 ML SYRG SC SCH ×2 (08:13→08:28)
--- NOTE | 2020-07-05 11:42 | DS ---
(1) Status post left knee replacement Problem: Acute (2) Anxiety about health Problem: Chronic (3) Benign essential hypertension Problem: Chronic (4) Benign prostatic hyperplasia Problem: Chronic Qualifiers: (5) Hyperlipidemia Problem: Chronic Qualifiers: (6) Narcolepsy Problem: Chronic (7) GARY on CPAP Problem: Chronic (8) RLS (restless legs syndrome) Problem: Chronic (9) Status post right knee replacement Problem: Acute Date of Discharge:: 07/05/20 Hospital Course: Mr. Jacobsen was admitted to the floor after undergoing bilateral staged total knee arthroplasty. Tolerated this well. Was admitted to the floor postoperatively for 24 hours of IV antibiotics, pain control, medical comanagement, and occupational and physical therapy. OT and PT were consulted to assist with activities of daily living and ambulation. Was made weightbearing as tolerated with range of motion as tolerated. Pain was initially controlled with IV regimen. This was transitioned to oral once tolerating a by mouth intake. Was resumed on home diet and medications. A Paredes catheter was inserted in the operating room which was discontinued by postoperative day 1 after the second knee. A drain was placed intraoperatively into the knee which was discontinued on postoperative day 1 after each knee. Lovenox, SCDs, and SOPHIE hose were utilized for DVT prophylaxis. Vital signs remained stable to the hospital course. Labs were obtained which showed a final hemoglobin of 12.6 grams. BMP was reviewed and was stable. Physical examination throughout the hospital course showed an extremity that had sensation that was intact to light touch, palpable pulses, a benign wound, motor intact to the toes, ankle, and knee. Knee range of motion was approximately 5 degrees to 60 degrees bilaterally. Once an oral pain regimen was tolerated and physical therapy goals were met, it was felt that they were stable for discharge to home. Instructions: Continue with weightbearing as tolerated and range of motion as tolerated. It is okay to shower and get the wound wet as long as there is no drainage from the wound. Do not bathe or soak the wound. If there is any drainage from the wound keep the wound clean and dry and cover with dry gauze and tape. Change every 2- 3 days as needed if there is any drainage. Cover wound while showering if there is any drainage. Continue with physical therapy. Resume home diet. Report any fever over 101.5 Fahrenheit, uncontrolled pain, increased drainage, foul odor of drainage, new or increased calf pain or shortness of breath, or any other significant complaints. A 325mg daily aspirin will be started after finishing anticoagulation if not allergic. Continue with SOPHIE hose on the operative extrem ity until instructed otherwise. No driving until instructed otherwise. Follow up in approximately 2-3 weeks. Procedures Performed: see notes below List Procedures: Bilateral total knee arthroplasty Results and Findings: Lab Pending Results 07/02/20 06:14: WBC 9.2, RBC 4.45 L, Hgb 14.2, Hct 41.3 L, MCV 92.8, MCH 31.9 H, MCHC 34.4, RDW 13.6, Plt Count 151, MPV 9.8 07/02/20 06:14: Sodium 142, Plasma Sodium 142, Potassium 3.4, Chloride 103, Carbon Dioxide 30.6, Anion Gap 11.8, BUN 20, Creatinine 1.33, Est GFR (Non-Af Amer) 59 L, BUN/Creatinine Ratio 15.0, Random Glucose 114 H, Calcium 8.4 07/04/20 06:05: WBC 10.9 H, RBC 3.97 L, Hgb 12.6 L, Hct 38.4 L, MCV 96.7, MCH 31.7 H, MCHC 32.8, RDW 13.5, Plt Count 163, MPV 9.9 07/04/20 06:05: Sodium 140, Plasma Sodium 140, Potassium 3.3 L, Chloride 100, Carbon Dioxide 35.9 H, Anion Gap 7.4, BUN 18, Creatinine 1.65 H, Est GFR (Non-Af Amer) 46 L D, BUN/Creatinine Ratio 10.9, Random Glucose 128 H, Calcium 8.7 Disposition: Home self-care Condition: Good Discharge Activity: Activity as tolerated, Weight bearing Discharge Diet: General/regular food Referrals: Wilman Wesley MD [Primary Care Provider] - Additional Patient Instructions (free text): Physical Therapy at [facility] outpatient rehab department on TuesdayJuly 07 at 3:00pm. Follow up [facility] Orthopedic office appointment on TuesdayJuly 23 at 9:00am. Prescriptions (Any new or edited meds): Enoxaparin Sodium [Lovenox] 40 mg SC Q24H #7 disp.syrin Transmission Status: Pending to [facility] Morphine Sulfate [Ms Contin] 15 mg PO Q12H #10 tablet.sa Transmission Status: Sent to [facility] HYDROcodone/ACETAMINOPHEN [[place] 10-325 Tablet] 1 - 2 each PO Q4H PRN #50 tablet PRN Reason: Pain Transmission Status: Sent to [facility] Sennosides/Docusate Sodium [Senokot-S] 2 tab PO HS #60 tab Transmission Status: Pending to [facility] Complete Home Medications List: Complete Home Medication List: albuterol sulfate 90 mcg/actuation aerosol inhaler 2 inh IH Q6H PRN #8.5 g 05/04/19 epinephrine 0.3 mg/0.3 mL injection, auto-injector 0.3 mg IM ONCE PRN #2 ea 05/04/19 furosemide 40 mg tablet 40 mg PO DAILY #30 tab 01/03/20 tamsulosin 0.4 mg capsule 0.4 mg PO DAILY #90 cap 01/03/20 hydrochlorothiazide 25 mg tablet 25 mg PO DAILY #30 tab 01/18/20 diltiazem HCl 360 mg capsule,extended release 24 hr 360 mg PO DAILY cap 05/23/20 losartan 100 mg tablet 100 mg PO DAILY tab 05/23/20 modafinil 200 mg tablet 200 mg PO DAILY tab 05/23/20 Ropinirole HCl 5 mg PO BID 06/11/20 Sulindac 200 mg PO BID 06/11/20 Enoxaparin Sodium [Lovenox] 40 mg SC Q24H #7 disp.syrin 07/05/20 HYDROcodone/ACETAMINOPHEN [[place] 10-325 Tablet] 1 - 2 each PO Q4H PRN #50 tablet 07/05/20 Morphine Sulfate [Ms Contin] 15 mg PO Q12H #10 tablet.sa 07/05/20 Sennosides/Docusate Sodium [Senokot-S] 2 tab PO HS #60 tab 07/05/20 Amb Orders for Discharge: PT Evaluation and Treatment* Facility: [facility], Location: Rehabilitation Services
[2020-07-05 14:34] VITALS: BP 128/55
== END 2020-07-05 15:00 | disposition home or self-care (01) | DRG 462 ==
LOC: MS 06:33
PROVIDERS: ADMIT Orthopaedic Surgery; ATTEND Orthopaedic Surgery
DX: I10 Essential (primary) hypertension; M54.5 Low back pain; M17.0 Bilateral primary osteoarthritis of knee; F41.9 Anxiety disorder, unspecified; G47.33 Obstructive sleep apnea (adult) (pediatric); N40.0 Benign prostatic hyperplasia without lower urinary tract symptoms; G47.419 Narcolepsy without cataplexy; E78.5 Hyperlipidemia, unspecified; G25.81 Restless legs syndrome